=== PATIENT | female | born 1975 | race African-American/Black ===

== ENCOUNTER 2021-11-06 12:31 | Emergency (ER) | payer BC ==
[2021-11-06 12:50] VITALS: BMI 30.6
[2021-11-06] MEDS ORDERED: SODIUM CHLORIDE 0.9% 500 ML INFUS.BAG IV ONE (13:51)
[2021-11-06 15:16] LABS: BASO % 0.5 % (0-2.0); EOS % 1.3 % (0-4.5); HEMATOCRIT 32.9 % (32.4-45.2); HEMOGLOBIN 10.2 GM/dL (10.7-15.3); LYMPH % 26.4 % (8-40); MCH 20.8 pg (25.7-33.7); MEAN CELL VOLUME 67.2 fl (80-96); MEAN PLT VOLUME 7.5 fl (7.5-11.1); MONO % 7.1 % (3.8-10.2); NEUT % 64.7 % (42.8-82.8); PLATELET COUNT 379 10^3/uL (134-434); RBC 4.89 M/mm3 (3.60-5.2)
[2021-11-06 15:23] LABS: CHLORIDE 104 mmol/L (98-107); SODIUM 138 mmol/L (136-145)
[2021-11-06 15:24] LABS: CALCIUM 8.7 mg/dL (8.5-10.1); GLUCOSE,RANDOM 86 mg/dL (74-106)
[2021-11-06 15:25] LABS: ANION GAP 10 MMOL/L (8-16); CO2 24 mmol/L (21-32)
[2021-11-06 15:27] LABS: ALBUMIN 3.2 g/dl (3.4-5.0)
[2021-11-06 15:28] VITALS: BP 114/64; PULSE 69; RESP 16; TEMP 97.7
[2021-11-06 15:28] LABS: SGOT/AST 57 U/L (15-37); SGPT/ALT 24 U/L (13-61)
[2021-11-06 15:29] LABS: CREATININE 0.5 mg/dL (0.55-1.3)
[2021-11-06 15:30] LABS: BILIRUBIN,TOTAL 0.6 mg/dL (0.2-1); TOT PROT 8.1 g/dl (6.4-8.2)
[2021-11-06 15:31] LABS: ALK PHOS 99 U/L (45-117)
[2021-11-06 15:45] LABS: ANISOCYTOSIS 2+; PLATELET ESTIMATE ADEQUATE; TEAR DROP CELLS 1+
[2021-11-06 18:40] LABS: HCG,QUALITATIVE URINE Negative
[2021-11-06 18:45] LABS: EPI CELLS 5 /uL (0-25.1); HYALINE CASTS 0 /uL (0-3.1); PH,URINE 5.5 (5.0-8.0); URINE APPEARANCE CLEAR; URINE BACTERIA 60 /uL (0-1359); URINE BILIRUBIN NEGATIVE (NEGATIVE); URINE COLOR YELLOW; URINE GLUCOSE (UA) NEGATIVE (NEGATIVE); URINE KETONE NEGATIVE (NEGATIVE); URINE LEUK ESTERASE NEGATIVE (NEGATIVE); URINE NITRITE NEGATIVE (NEGATIVE); URINE PROTEIN NEGATIVE (NEGATIVE); URINE RBC 3 /uL (0-23.9); URINE UROBILINOGEN 0.2 mg/dL (0.2-1.0); URINE WBC 2 /uL (0-25.8)
== END 2021-11-06 18:32 | disposition home or self-care (01) ==
LOC: JER 12:31
DX: R42 Dizziness and giddiness (principal)
CPT/HCPCS: 36415; 80053; 81003; 84484; 84702; 84703; 85025; 86850; 86900; 86901; 87086; 93005; 93010; 99284-25

== ENCOUNTER 2023-08-10 22:06 | Emergency (ER) | payer SELFPAY ==
[2023-08-10 22:12] VITALS: BP 134/86; PULSE 75; RESP 19; TEMP 98; BMI 32.5
== END 2023-08-11 00:03 | disposition home or self-care (01) ==
LOC: JERFT 22:06 → JER 22:06
DX: T24.112A Burn of first degree of left thigh, initial encounter (principal); X12.XXXA Contact with other hot fluids, initial encounter; Y93.G3 Activity, cooking and baking
CPT/HCPCS: 99283-25